=== PATIENT | male | born 2000 | race Hispanic/Latino ===

== ENCOUNTER 2022-02-06 22:05 | Emergency (ER) | payer OTHER ==
[~2022-02-06] VITALS: Ht 168.9 cm; Wt 97.7 kg
[2022-02-07 00:30] LABS: BASO # 0.1 10^3/uL (0.0-0.2); BASO % 0.6 % (0.0-1.0); EOS # 0.5 10^3/uL (0.0-0.5); EOS % 5.8 % (0.0-3.0); HEMATOCRIT 42.2 % (42.0-52.0); HEMOGLOBIN 14.5 g/dl (13.5-17.5); LYMPH # 2.8 10^3/uL (1.5-5.0); LYMPH % 31.3 % (24.0-44.0); MEAN CORPUSCULAR HEMOGLOBIN 30.6 pg (27.0-33.0); MEAN CORPUSCULAR HGB CONC 34.4 g/dl (32.0-36.5); MONO # 0.8 10^3/uL (0.0-0.8); MONO % 8.9 % (2.0-8.0); NEUTROPHILS # 4.7 10^3/uL (1.5-8.5); NEUTROPHILS % 53.2 % (36.0-66.0); PLATELET COUNT, AUTOMATED 256 10^3/uL (150-450); RED BLOOD COUNT 4.74 10^6/uL (4.30-6.10); WHITE BLOOD COUNT 8.8 10^3/uL (4.0-10.0)
[2022-02-07 00:57] LABS: BLOOD UREA NITROGEN 18 MG/DL (7-18); CALCIUM LEVEL 9.4 MG/DL (8.5-10.1); CARBON DIOXIDE LEVEL 27 MEQ/L (21-32); CHLORIDE LEVEL 110 MEQ/L (98-107); GLOMERULAR FILTRATION RATE > 60.0 (>60); GLUCOSE, FASTING 103 MG/DL (70-100); POTASSIUM SERUM 4.3 MEQ/L (3.5-5.1); SODIUM LEVEL 142 MEQ/L (136-145)
[2022-02-07 01:55] LABS: GC DNA AMPLIFICATION NEGATIVE (NEGATIVE)
[2022-02-07 02:17] VITALS: BP 120/43
[2022-02-07] MEDS ORDERED: ONDA4TAB6 PO (02:19)
[2022-02-07] MEDS ORDERED: traMADol 50 MG TAB PO ONE (02:30)
[2022-02-07] MEDS ORDERED: traMADol 50 MG TAB (HOME DOSE PACK) PO ONE (02:30)
== END 2022-02-07 03:08 | disposition home or self-care (01) ==
LOC: M ED 22:05
DX: R10.32 Left lower quadrant pain (principal); Z79.899 Other long term (current) drug therapy

== ENCOUNTER 2023-01-03 11:44 | Day surgery (SDC) | payer OTHER ==
[~2023-01-03] VITALS: Ht 167.6 cm; Wt 104.3 kg
[~2023-01-03 11:44] MED LIST: ONDA4TAB6 PO; ceFAZolin SOD 2 GM in IV 1 EA IV ONE
[2023-01-03] MEDS ORDERED: LIDOCAINE 1% SDV 30ML VIAL As Ordered ONE (13:13)
[2023-01-03] MEDS ORDERED: LIDOCAINE 2% 100MG/5ML SDV (FOR ANES.) As Ordered ONE (13:29)
[2023-01-03] MEDS ORDERED: ONDANSETRON 4MG 2ML VIAL As Ordered ONE (13:29)
[2023-01-03] MEDS ORDERED: propofoL 200 MG/20 ML VIAL As Ordered ONE (13:29)
[2023-01-03] MEDS ORDERED: fentaNYL 250 MCG/5 ML INJECTION As Ordered ONE (13:29)
[2023-01-03] MEDS ORDERED: MIDAZOLAM INJ 2MG/2ML VIAL As Ordered ONE (13:29)
[2023-01-03] MEDS ORDERED: ACETAMINOPHEN 1000MG 100ML IV BAG As Ordered ONE (13:32)
[2023-01-03] MEDS ORDERED: dexmedeTOMIDine (4MCG/ML)200MCG/50ML BTL (PRECEDEX) As Ordered ONE (13:39)
[2023-01-03] MEDS ORDERED: fentaNYL 100 MCG/2 ML INJECTION IV PRN (14:00)
[2023-01-03] MEDS ORDERED: LR 1,000 ML IV SCH (14:00)
[2023-01-03] MEDS ORDERED: oxyCODONE 5MG TAB PO PRN (14:00)
[2023-01-03] MEDS ORDERED: ONDANSETRON 4MG 2ML VIAL IV PRN (14:00)
[2023-01-03] MEDS ORDERED: HYDR-3713 PO (14:17)
[2023-01-03] MEDS ORDERED: CEPH500C PO (14:17)
[2023-01-03 15:30] VITALS: BP 123/62; TEMP 98.3; O2SAT 98
== END 2023-01-03 15:39 | disposition home or self-care (01) ==
LOC: M SDC 11:44
PROVIDERS: ATTEND Urology
DX: N47.1 Phimosis (principal); R21 Rash and other nonspecific skin eruption
CPT/HCPCS: 54161; 88304; J0131; J0690; J1100; J2250; J2405; J3010